=== PATIENT | male | born 1945 | race African-American/Black ===

== ENCOUNTER → 2018-08-31 | Outpatient (CLI) | payer MEDICARE ==
[~2018-08-31] MED LIST: ASPI-496 PO; CHOL100012 PO; DIVA-61 PO; INSU100I44 SQ-INSULIN; LISI-167 PO; NIFE30TA13 PO; SIMV40TA3 PO
[2018-08-31 10:56] LABS: ALBUMIN 2.6 g/dL (3.4-5.0); ANION GAP 7 mmol/L (5-15); CALCIUM 9.1 mg/dL (8.5-10.1); CHLORIDE 108 mmol/L (98-107)
[2018-08-31 10:59] LABS: ALANINE AMINOTRANSFERASE 13 U/L (12-78); ALKALINE PHOSPHATASE 62 U/L (45-117); BILIRUBIN,TOTAL 0.3 mg/dL (0.2-1.0); CREATININE 1.71 mg/dL (0.7-1.3)
== END | disposition home or self-care (01) ==
LOC: STAR 09:21
PROVIDERS: ATTEND Internal Medicine Gastroenterology
DX: Z01.818 Encounter for other preprocedural examination (principal); D12.3 Benign neoplasm of transverse colon
CPT/HCPCS: 36415; 80053; 93005

== ENCOUNTER 2018-09-08 06:23 | Day surgery (SDC) | payer MEDICARE ==
[~2018-09-08] VITALS: Ht 175.3 cm; Wt 106.4 kg
[2018-09-08] MEDS ORDERED: LACTATED RINGERS 1,000 ML IV SCH (07:08)
[2018-09-08 07:39] VITALS: BP 122/74
[2018-09-08] MEDS ORDERED: FENTANYL PF 100 MCG/2ML ONE ×2 (08:18→09:26)
[2018-09-08] MEDS ORDERED: MIDAZOLAM 1 MG/ML, 2ML ONE (08:18)
[2018-09-08] MEDS ORDERED: GLYCOPYRROLATE 0.2MG/1ML, 5ML ONE (08:38)
[2018-09-08] MEDS ORDERED: EPHEDRINE 50 MG/ML, 1ML ONE (08:38)
[2018-09-08] MEDS ORDERED: NEOSTIGMINE 1 MG/ML, 10ML ONE (08:38)
[2018-09-08] MEDS ORDERED: ROCURONIUM 10 MG/ML,10ML ONE (08:38)
[2018-09-08] MEDS ORDERED: PROPOFOL 10 MG/ML, 20ML ONE (08:38)
[2018-09-08] MEDS ORDERED: EPINEPHRINE SYRINGE 0.1 MG/ML, 10ML ONE (09:06)
== END 2018-09-08 12:10 | disposition home or self-care (01) ==
LOC: OUT 06:23
PROVIDERS: ATTEND Internal Medicine Gastroenterology
DX: Z09 Encounter for follow-up examination after completed treatment for conditions other than malignant neoplasm (principal); D12.3 Benign neoplasm of transverse colon; D12.0 Benign neoplasm of cecum; E11.22 Type 2 diabetes mellitus with diabetic chronic kidney disease; I12.9 Hypertensive chronic kidney disease with stage 1 through stage 4 chronic kidney disease, or unspecified chronic kidney disease; N18.9 Chronic kidney disease, unspecified; E78.5 Hyperlipidemia, unspecified; Z86.73 Personal history of transient ischemic attack (TIA), and cerebral infarction without residual deficits; Z98.890 Other specified postprocedural states; Z79.82 Long term (current) use of aspirin; Z79.899 Other long term (current) drug therapy
CPT/HCPCS: 45381; 45390; 88305; A4648; J2704; J2710; J3010; J3490; J7120; J2250

== ENCOUNTER → 2018-10-14 | Outpatient (CLI) | payer MEDICARE | END | disposition home or self-care (01) | LOC: CFH 12:26 | PROVIDERS: ATTEND Internal Medicine Cardiovascular Disease | DX: I34.0 Nonrheumatic mitral (valve) insufficiency (principal); I11.9 Hypertensive heart disease without heart failure; E78.5 Hyperlipidemia, unspecified; E11.9 Type 2 diabetes mellitus without complications | CPT/HCPCS: 93306 ==

== ENCOUNTER 2019-01-19 06:28 | Day surgery (SDC) | payer MEDICARE ==
[~2019-01-19] VITALS: Ht 175.3 cm; Wt 103.3 kg
[2019-01-19] MEDS ORDERED: LACTATED RINGERS 1,000 ML IV SCH (06:57)
[2019-01-19 07:30] VITALS: BP 137/77
[2019-01-19] MEDS ORDERED: PROPOFOL 10 MG/ML, 20ML ONE ×2 (08:22→08:48)
== END 2019-01-19 11:00 | disposition home or self-care (01) ==
LOC: OUT 06:28
PROVIDERS: ATTEND Internal Medicine Gastroenterology
DX: Z09 Encounter for follow-up examination after completed treatment for conditions other than malignant neoplasm (principal); D12.3 Benign neoplasm of transverse colon; E11.9 Type 2 diabetes mellitus without complications; E78.5 Hyperlipidemia, unspecified; I10 Essential (primary) hypertension; Z86.010 Personal history of colon polyps; Z79.82 Long term (current) use of aspirin; Z79.4 Long term (current) use of insulin
CPT/HCPCS: 45380; 45385; 82962; 88305; 93005; J2704; J7120

== ENCOUNTER 2019-10-10 14:26 | Outpatient (CLI) | payer MEDICARE | END 2019-10-10 23:59 | disposition home or self-care (01) | LOC: CFH 14:26 | PROVIDERS: ATTEND Internal Medicine Cardiovascular Disease | DX: I05.1 Rheumatic mitral insufficiency (principal); E78.5 Hyperlipidemia, unspecified; E11.9 Type 2 diabetes mellitus without complications | CPT/HCPCS: 93306 ==

== ENCOUNTER → 2020-09-23 | Outpatient (CLI) | payer MEDICARE ==
[~2020-09-23] MED LIST changes: +SIMV40TA20 PO; -SIMV40TA3 PO
== END | disposition home or self-care (01) ==
LOC: RAD 13:18
PROVIDERS: ATTEND Internal Medicine Nephrology
DX: I12.9 Hypertensive chronic kidney disease with stage 1 through stage 4 chronic kidney disease, or unspecified chronic kidney disease (principal); N18.32 Chronic kidney disease, stage 3b; E11.22 Type 2 diabetes mellitus with diabetic chronic kidney disease
CPT/HCPCS: 76770

== ENCOUNTER → 2020-11-12 | Outpatient (CLI) | payer MEDICARE | END | disposition home or self-care (01) | LOC: CFH 08:46 | PROVIDERS: ATTEND Registered Nurse | DX: I08.3 Combined rheumatic disorders of mitral, aortic and tricuspid valves (principal) | CPT/HCPCS: 93306 ==